=== PATIENT | female | born 1940 | race Caucasian/White ===

== ENCOUNTER 2019-06-26 14:00 | Outpatient (RCR) | payer MEDICARE | END 2019-09-12 | disposition home or self-care (01) | LOC: MKS.ESL.PT | DX: I89.0 Lymphedema, not elsewhere classified (principal) ==

== ENCOUNTER → 2019-07-14 | Outpatient (CLI) | payer MEDICARE | LOC: COL.VAS 08:00 | DX: I35.2 Nonrheumatic aortic (valve) stenosis with insufficiency (principal); I34.8 Other nonrheumatic mitral valve disorders ==

== ENCOUNTER → 2020-09-03 | Outpatient (CLI) | payer MEDICARE ==
[~2020-09-03] MED LIST: AVAPRO TAB150 MG/TAB PO; GLUCOPHAGE500 MG/TAB PO
== END ==
LOC: MC.RAD 08-20 10:00
DX: C50.411 Malignant neoplasm of upper-outer quadrant of right female breast (principal); R59.0 Localized enlarged lymph nodes

== ENCOUNTER → 2020-09-17 | Outpatient (CLI) | payer MEDICARE | LOC: COL.CARD 10:41 | DX: C50.411 Malignant neoplasm of upper-outer quadrant of right female breast (principal) ==

== ENCOUNTER 2021-12-25 22:21 | Inpatient (IN) | payer MEDICARE ==
[~2021-12-25] VITALS: Ht 162.6 cm; Wt 72.6 kg
[2021-12-25] MEDS ORDERED: ARIMIDEX1 MG PO (22:31)
[2021-12-25] MEDS ORDERED: ZOFRAN8 MG PO (22:31)
[2021-12-25 22:46] LABS: COLLECTION METHOD CLEAN CATCH
[2021-12-25 22:49] LABS: BASO % 0.5 % (0.0-2.0); GRAN # 5.5 K/mm3 (1.4-6.5); GRAN % 75.5 % (42.2-75.2); LYMPH # 1.3 K/mm3 (1.2-3.4); MEAN CELL VOLUME 98 fl (80.0-100.0); MEAN CORPUSCULAR HEMOGLOBIN 34 pg (27-31); MEAN CORPUSCULAR HGB CONC 35 g/dl (33.0-37.0); MEAN PLATELET VOLUME 10.7 fl (7.4-10.4); MONO # 0.4 K/mm3 (0.1-0.6); MONO % 5.6 % (1.7-9.3); PLATELET COUNT 194 K/mm3 (130-400); RED BLOOD COUNT 3.57 M/mm3 (4.10-5.30); REDCELL DISTRIBUTION WIDTH-CV 15.7 % (11.5-14.5)
[2021-12-25 22:57] LABS: HEMATOCRIT 34.8 % (37.0-47.0); MUCOUS Present (NOT PRESENT); PH 5 (5-8); URINE APPEARANCE Cloudy (CLEAR/HAZY); URINE BACTERIA Moderate /hpf (NONE SEEN); URINE BILIRUBIN Negative (NEGATIVE); URINE BLOOD 2+ (NEGATIVE); URINE COLOR Amber (YELLOW); URINE GLUCOSE Negative (NEGATIVE); URINE KETONE Trace (NEGATIVE); URINE LEUKOCYTE ESTERASE 2+ (NEGATIVE); URINE NITRATE Negative (NEGATIVE); URINE PROTEIN(semi-quant) 1+ (NEGATIVE); URINE UROBILINOGEN Negative (NEGATIVE)
[2021-12-25 23:10] LABS: ALBUMIN 4.1 gm/dL (3.4-4.8); BILIRUBIN,TOTAL 0.6 mg/dL (0.2-1.2); C-REACTIVE PROTEIN 1.52 mg/dL (0.00-0.50); CALCIUM 9.4 mg/dL (8.4-10.2); CREATININE, serum 1.4 mg/dL (0.57-1.11); POTASSIUM 4.5 mmol/L (3.5-4.5); TOTAL PROTEIN 7.6 gm/dL (6.2-8.1)
[2021-12-26] MEDS ORDERED: IBRANCE125 MG PO (02:30)
[2021-12-26 03:03] VITALS: BP 116/61; PULSE 109; TEMP 98.2
[2021-12-26 06:33] LABS: BASO % 0.3 % (0.0-2.0); GRAN # 5.2 K/mm3 (1.4-6.5); GRAN % 72.9 % (42.2-75.2); HEMOGLOBIN 10.2 g/dl (12.5-16.0); LYMPH # 1.2 K/mm3 (1.2-3.4); LYMPH % 17.3 % (20.0-51.0); MEAN CELL VOLUME 100 fl (80.0-100.0); MEAN CORPUSCULAR HEMOGLOBIN 34 pg (27-31); MEAN CORPUSCULAR HGB CONC 34 g/dl (33.0-37.0); MEAN PLATELET VOLUME 10.7 fl (7.4-10.4); MONO # 0.6 K/mm3 (0.1-0.6); MONO % 8.5 % (1.7-9.3); PLATELET COUNT 169 K/mm3 (130-400); RED BLOOD COUNT 3.03 M/mm3 (4.10-5.30); REDCELL DISTRIBUTION WIDTH-CV 15.9 % (11.5-14.5)
[2021-12-26 06:41] LABS: HEMATOCRIT 30.4 % (37.0-47.0)
[2021-12-26 06:50] LABS: CALCIUM 8.3 mg/dL (8.4-10.2); CREATININE, serum 1.15 mg/dL (0.57-1.11); POTASSIUM 4.2 mmol/L (3.5-4.5)
[2021-12-26 08:10] VITALS: BP 112/59; PULSE 110; TEMP 98
--- NOTE | 2021-12-26 08:30 | NUR ---
Patient assisted to the bathroom by this RN. Patient has a steady gait and ambulated w/o assistance. Only assistance needed was w/ the IV pump. Patient states pain is still present in the LLQ. Also reports mild nausea.
--- NOTE | 2021-12-26 08:50 | NUR ---
Patient taking at least two chemotherapy agents. Patient to be on chemo precautions when handling urine and stool; ongoing as patient takes on daily. Notified care team and placed sign outside door. Also verified with pharmacy.
--- NOTE | 2021-12-26 10:42 | NUR ---
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 Patient reports that she currently lives at home alone in [place]. Patient states that she is independent with her ADL's and does not utilize any DME to assist with mobility. Patient reports that she has no home oxygen needs. PCP is Dr. Zheng but does reports that she hasn't seen him in many years. She utilizes [facility] for perscription needs with no cost difficulty. Patient reports that she does not have a DPOA-HC established. She is legally and has 2 children: Nona ([phone]). Patient has a son as well named Shay who lives in [place]. Discharge plan: Home
[2021-12-26 11:52] VITALS: BP 103/68; PULSE 111; TEMP 98.3
[2021-12-26 15:58] VITALS: BP 151/86; PULSE 109; TEMP 99.3
--- NOTE | 2021-12-26 18:37 | NUR ---
Patient has done well today and stated her pain has much improved after passing gas. Unable to provide stool specimen still.
[2021-12-26 20:06] VITALS: BP 140/80; PULSE 99; TEMP 98.5
--- NOTE | 2021-12-26 21:50 | NUR ---
ALERT AND OX4- IV FLUIDS/ANTIBOTICS. DENIES PAIN. CLEAR LIQ TOLERATING. TELE NS. AWAITING GI PANEL- PT HAS NOT HAD ANY BM TO COLLECT. POC DISCUSSED. NEEDS MET. PRECAUTIONS ON ORAL CHEMO.
[2021-12-26 23:34] VITALS: BP 111/66; PULSE 104; TEMP 98.5
[2021-12-27 03:56] VITALS: BP 110/67; PULSE 66; TEMP 98
--- NOTE | 2021-12-27 05:43 | NUR ---
RESTED THROUGH THE NIGHT WITHOUT INCIDENT. NO BM OVERNIGHT TO COLLECT GI PANEL. NEEDS MET.
--- NOTE | 2021-12-27 06:30 | NUR ---
THE PATIENT IS AWAKE IN BED. COMPLAINT OF PAIN AT THE IV SITE. AFTER ASSESSMENT OF THE IV, THE PATIENT'S IV IS INFLITRATED WHILE METRONDIAZOLE WAS RUNNING. IMMEDIATE STOP OF THE IV, AND REMOVAL OF THE IV AT THIS TIME. THERE IS EDEMA AND ECCHYMOSIS PRESENT WELL LEAKING FROM THE IV SITE. WILL CONTACT DOCTOR DUE TO THE PATIENT BEING ON TELEMETRY AND THE IV ABX THAT ARE DUE. NO OTHER CONCERNS AT THIS TIME.
[2021-12-27 07:04] LABS: BASO # 0.1 K/mm3 (0.0-0.2); BASO % 0.8 % (0.0-2.0); EOS # 0.1 K/mm3 (0.0-0.7); EOS % 1.1 % (0.0-4.0); GRAN # 3.6 K/mm3 (1.4-6.5); GRAN % 56.6 % (42.2-75.2); LYMPH % 30.9 % (20.0-51.0); MEAN CELL VOLUME 102 fl (80.0-100.0); MEAN CORPUSCULAR HGB CONC 33 g/dl (33.0-37.0); MEAN PLATELET VOLUME 10.9 fl (7.4-10.4); MONO # 0.6 K/mm3 (0.1-0.6); MONO % 10.1 % (1.7-9.3); PLATELET COUNT 163 K/mm3 (130-400); RED BLOOD COUNT 2.94 M/mm3 (4.10-5.30); REDCELL DISTRIBUTION WIDTH-CV 16.3 % (11.5-14.5)
[2021-12-27 07:09] LABS: HEMATOCRIT 29.9 % (37.0-47.0); HEMOGLOBIN 9.8 g/dl (12.5-16.0); MEAN CORPUSCULAR HEMOGLOBIN 33 pg (27-31)
[2021-12-27 07:20] LABS: CALCIUM 8.3 mg/dL (8.4-10.2); CREATININE, serum 1.05 mg/dL (0.57-1.11); MAGNESIUM 1.8 mg/dL (1.6-2.6); POTASSIUM 3.7 mmol/L (3.5-4.5)
[2021-12-27 07:45] VITALS: BP 117/52; PULSE 97; TEMP 98.1
--- NOTE | 2021-12-27 08:00 | NUR ---
THIS RN ATTEMPTED AN IV ON THE PATIENT AFTER INITIAL IV WAS INFILTRATED, THE PATIEN'TS VEIN BLEW, THEREFORE THIS RN WAS GOING TO ATTEMPT ONE MORE TIME. THE PATIENT REFUSED, AND THEN STATED SHE WAS GOING TO LEAVE AMA. CONTACTED PROVIDER REGARDING THE PATIENT'S DESIRE TO LEAVE. THIS RN DISCUSSED WITH THE PATIENT THE CONSEQUENCES OF LEAVING AGAINST MEDICAL ADVICE. SHE STATES AN UNDERSTANDING, AND ASKED IF SHE CAN JUST GO HOME WITH ORAL ABX. SHE STATES SHE IS GOING TO DISCUSS TREATMENT WITH HER DAUGHTER AND DECIDE IF THEY WILL LEAVE AMA. THIS RN TALKED WITH DR. SANON WHO STATES WE CAN GO WITHOUT AN IV UNTIL SHE REVIEW'S MS. WATSON'S CHART AND WITHOUT SIGNIFICANT HEART HISTORY WE CAN DISCONTINUE TELEMETRY. NO OTHER CONCERNS AT THIS TIME.
--- NOTE | 2021-12-27 09:10 | NUR ---
DR. SANON ASSESSED PATIENT, THE PATIENT HAS AGREED TO STAY, DIET CHANGED TO ADA, IV ABX CHANGED TO ORAL. DISCONTINUED TELEMETRY AT THIS TIME. WILL CONTINUE TO ASSESS NAUSEA/VOMITTING. NO OTHER CONCERNS AT THIS TIME.
[2021-12-27] MEDS ORDERED: FLAGYL500 MG PO (10:48)
[2021-12-27] MEDS ORDERED: OMNICEF 300MG300 MG PO (10:48)
[2021-12-27] MEDS ORDERED: PRIL40 PO (10:50)
== END 2021-12-27 12:00 | disposition home or self-care (01) | DRG 394 ==
LOC: COL.ER 22:21 → MEDICAL 12-26 02:05
PROVIDERS: Nurse Practitioner; Nurse Practitioner Family; Physician Assistant; ADMIT Student in an Organized Health Care Education/Training Program
DX: K52.1 Toxic gastroenteritis and colitis (principal); N39.0 Urinary tract infection, site not specified; E87.2 Acidosis; N17.9 Acute kidney failure, unspecified; C50.919 Malignant neoplasm of unspecified site of unspecified female breast; E11.9 Type 2 diabetes mellitus without complications; Z66 Do not resuscitate; I10 Essential (primary) hypertension; K57.30 Diverticulosis of large intestine without perforation or abscess without bleeding; J45.909 Unspecified asthma, uncomplicated; K44.9 Diaphragmatic hernia without obstruction or gangrene; D64.9 Anemia, unspecified; B96.20 Unspecified Escherichia coli [E. coli] as the cause of diseases classified elsewhere; K20.90 Esophagitis, unspecified without bleeding; T45.1X5A Adverse effect of antineoplastic and immunosuppressive drugs, initial encounter; Z96.643 Presence of artificial hip joint, bilateral; Z79.84 Long term (current) use of oral hypoglycemic drugs
CPT/HCPCS: 99222-AI; 99239; C9113; J0696; J1170; J1650; J2405; J7030; Q9967

== ENCOUNTER → 2021-12-30 | Outpatient (CLI) | payer MEDICARE ==
[~2021-12-30] MED LIST changes: +ARIMIDEX1 MG PO; +FLAGYL500 MG PO; +IBRANCE125 MG PO; +OMNICEF 300MG300 MG PO; +PRIL40 PO; +ZOFRAN8 MG PO
[2021-12-30 17:30] LABS: ALBUMIN 3.6 gm/dL (3.4-4.8); BILIRUBIN,TOTAL 0.4 mg/dL (0.2-1.2); C-REACTIVE PROTEIN 1.9 mg/dL (0.00-0.50); CALCIUM 8.7 mg/dL (8.4-10.2); CREATININE, serum 1.13 mg/dL (0.57-1.11); POTASSIUM 4.2 mmol/L (3.5-4.5); TOTAL PROTEIN 6.4 gm/dL (6.2-8.1)
[2021-12-30 17:32] LABS: BASO % 1.1 % (0.0-2.0); EOS # 0.1 K/mm3 (0.0-0.7); EOS % 1.7 % (0.0-4.0); GRAN % 54.4 % (42.2-75.2); LYMPH # 1.3 K/mm3 (1.2-3.4); LYMPH % 34.7 % (20.0-51.0); MEAN CELL VOLUME 99 fl (80.0-100.0); MEAN CORPUSCULAR HEMOGLOBIN 33 pg (27-31); MEAN CORPUSCULAR HGB CONC 34 g/dl (33.0-37.0); MEAN PLATELET VOLUME 10.9 fl (7.4-10.4); MONO # 0.3 K/mm3 (0.1-0.6); MONO % 7.5 % (1.7-9.3); PLATELET COUNT 189 K/mm3 (130-400); RED BLOOD COUNT 2.99 M/mm3 (4.10-5.30); REDCELL DISTRIBUTION WIDTH-CV 15.8 % (11.5-14.5)
[2021-12-30 17:34] LABS: HEMATOCRIT 29.5 % (37.0-47.0)
[2021-12-30 17:53] LABS: ERYTHROCYTE SEDIMENTATION RATE 56 mm/hr (0-30)
== END ==
LOC: ZCOL.LAB 16:56
PROVIDERS: Nurse Practitioner Family
DX: D62 Acute posthemorrhagic anemia (principal); K52.9 Noninfective gastroenteritis and colitis, unspecified

== ENCOUNTER → 2022-01-06 | Outpatient (CLI) | payer MEDICARE | LOC: COL.RAD 13:42 | DX: K52.9 Noninfective gastroenteritis and colitis, unspecified (principal); Z90.11 Acquired absence of right breast and nipple; Z96.643 Presence of artificial hip joint, bilateral | CPT/HCPCS: Q9967 ==